=== PATIENT | male | born 1995 | race Caucasian/White ===

== ENCOUNTER 2025-02-20 19:17 | Emergency (ER) | payer OTHER ==
[~2025-02-20] VITALS: Ht 167.6 cm; Wt 81.6 kg
[2025-02-20] MEDS ORDERED: Ketorolac Tromethamine 30 MG/ML VIAL IV ONE (19:50)
[2025-02-20] MEDS ORDERED: Ondansetron Hydrochloride 4 MG/2 ML VIAL IV ONE (19:50)
[2025-02-20] MEDS ORDERED: SODIUM CHLORIDE 0.9% 1,000 ML IV ONE (19:55)
[2025-02-20] MEDS ORDERED: diphenhydrAMINE hydrochloride 50 MG/ML VIAL IV ONE (19:55)
[2025-02-20] MEDS ORDERED: methylPREDNISolone sod succ 125 MG VIAL IV ONE (22:15)
[2025-02-20] MEDS ORDERED: PENICILLIN V POTASSIUM 500 MG TAB PO ONE (22:15)
[2025-02-20] MEDS ORDERED: PENICILLIN VK500 MG PO (22:27)
[2025-02-20] MEDS ORDERED: METHOCARBAMOL750 M1 PO (22:27)
== END 2025-02-20 22:31 | disposition home or self-care (01) ==
LOC: ED 19:17
DX: M26.621 Arthralgia of right temporomandibular joint (principal); K02.9 Dental caries, unspecified; R51.9 Headache, unspecified; Z88.6 Allergy status to analgesic agent